=== PATIENT | female | born 1970 | race Caucasian/White ===

== ENCOUNTER → 2023-06-05 08:24 | Outpatient (REF) | payer BC, SELFPAY ==
[2023-06-05 11:49] LABS: Microalbumin, Random Urine 0.9 mg/dl (0.6-1.7); Microalbumin/creatinine Ratio 38.1 mg/g
[2023-06-05 12:07] LABS: ALT (SGPT) 24 U/L (0-35); AST (SGOT) 29 U/L (14-36); Albumin 4.2 g/dl (3.5-5.0); Alkaline Phosphatase 94 U/L (38-126); Blood Urea Nitrogen 22 mg/dl (7-17); Calcium 9.6 mg/dl (8.4-10.2); Carbon Dioxide 27 mmol/L (22-30); Chloride 100 mmol/L (98-107); Glucose 146 mg/dl (70-99); HDL Cholesterol 48 mg/dl; LDL Cholesterol, Calculated 62 mg/dl; Potassium 4.5 mmol/L (3.5-5.1); Sodium 137 mmol/L (135-145); Total Bilirubin 0.5 mg/dl (0.2-1.3); Total Cholesterol 124 mg/dl (50-199); Triglyceride 74 mg/dl (10-149); Very Low Density Lipoprotein 14 mg/dl (0-30); eGFR > 60.00
[2023-06-05 12:19] LABS: Glycohemoglobin (HgbA1c) 6.5 % (4.0-5.6)
[2023-06-05 12:20] LABS: Vitamin D, 25-OH*** 57.2 ng/mL (30-80)
== END ==
LOC: REG 08:24
PROVIDERS: ATTENDING PHYSICIAN Student in an Organized Health Care Education/Training Program
DX: I10 Essential (primary) hypertension (principal); E11.65 Type 2 diabetes mellitus with hyperglycemia; E55.9 Vitamin D deficiency, unspecified
CPT/HCPCS: 36415; 80053; 80061; 82043; 82306; 82570; 83036

== ENCOUNTER → 2023-12-03 07:51 | Outpatient (REF) | payer BC, SELFPAY ==
[2023-12-03 10:24] LABS: HDL Cholesterol 52 mg/dl; LDL Cholesterol, Calculated 75 mg/dl; Total Cholesterol 144 mg/dl (50-199); Triglyceride 87 mg/dl (10-149); Very Low Density Lipoprotein 17 mg/dl (0-30)
== END ==
LOC: REG 07:51
PROVIDERS: ATTENDING PHYSICIAN Family Medicine
DX: E11.65 Type 2 diabetes mellitus with hyperglycemia (principal)
CPT/HCPCS: 36415; 80061

== ENCOUNTER → 2023-12-31 06:15 | Day surgery (SDC) | payer BC, SELFPAY ==
[2023-12-31 07:50] LABS: Glucose - Point of Care 160 mg/dl (70-99)
== END ==
LOC: GI 06:15
PROVIDERS: ATTENDING PHYSICIAN Internal Medicine; FAMILY PHYSICIAN Family Medicine
DX: Z12.11 Encounter for screening for malignant neoplasm of colon (principal); R13.10 Dysphagia, unspecified; K22.2 Esophageal obstruction; K31.7 Polyp of stomach and duodenum; D12.2 Benign neoplasm of ascending colon; K63.5 Polyp of colon; K21.00 Gastro-esophageal reflux disease with esophagitis, without bleeding
CPT/HCPCS: 43249; 45385; 45380; 43239; 88305; 82962; 88342

== ENCOUNTER → 2024-05-31 07:29 | Outpatient (REF) | payer BC, SELFPAY ==
[2024-05-31 08:59] LABS: Microalbumin, Random Urine 1.6 mg/dl (0.6-1.7)
[2024-05-31 09:04] LABS: Microalbumin/creatinine Ratio 38.6 mg/g
[2024-05-31 09:07] LABS: Glycohemoglobin (HgbA1c) 6.2 % (4.0-5.6)
[2024-05-31 11:02] LABS: ALT (SGPT) 30 U/L (0-35); AST (SGOT) 31 U/L (14-36); Albumin 4.9 g/dl (3.5-5.0); Alkaline Phosphatase 82 U/L (38-126); Blood Urea Nitrogen 18 mg/dl (7-17); Carbon Dioxide 26 mmol/L (22-30); Chloride 103 mmol/L (98-107); Glucose 81 mg/dl (70-99); HDL Cholesterol 47 mg/dl; LDL Cholesterol, Calculated 64 mg/dl; Potassium 4.3 mmol/L (3.5-5.1); Sodium 142 mmol/L (135-145); Total Bilirubin 0.6 mg/dl (0.2-1.3); Total Cholesterol 130 mg/dl (50-199); Total Protein 7.8 g/dl (6.3-8.2); Triglyceride 98 mg/dl (10-149); Very Low Density Lipoprotein 19 mg/dl (0-30); eGFR > 60.00
[2024-05-31 11:15] LABS: Vitamin D, 25-OH*** 61.9 ng/mL (30-80)
== END ==
LOC: REG 07:29
PROVIDERS: ATTENDING PHYSICIAN Family Medicine
DX: E11.65 Type 2 diabetes mellitus with hyperglycemia (principal); E55.9 Vitamin D deficiency, unspecified; R80.9 Proteinuria, unspecified; Z79.4 Long term (current) use of insulin
CPT/HCPCS: 36415; 80053; 80061; 82043; 82306; 82570; 83036

== ENCOUNTER 2024-11-17 06:15 | Day surgery (SDC) | payer BC, SELFPAY ==
[2024-11-17 08:09] VITALS: BMI 37.0
[2024-11-17 08:11] VITALS: BP 154/90; BMI 37.0
[2024-11-17 08:13] LABS: Glucose - Point of Care 278 mg/dl (70-99)
[2024-11-17] MEDS: NORMOSOL-R/PLASMALYTE-A 1000 IV (08:27)
[2024-11-17] MEDS: NOVOLOG vial 4 UNITS SC (08:28)
[2024-11-17] MEDS: NEO-SYNEPHRINE 2.5% OPH SOL. 1 DROP OPHTH (09:03)
[2024-11-17] MEDS: CYCLOGYL 1% EYE DROPS 1 DROP OPHTH (09:03)
[2024-11-17] MEDS: ALCAINE 0.5% EYE DROPS 1 DROP OPHTH (09:03)
[2024-11-17] MEDS: MYDRIACYL 1 DROP OPHTH (09:03)
[2024-11-17] MEDS: PRED FORTE 1% EYE DROPS 1 DROP OPHTH (09:04)
[2024-11-17] MEDS: POLYTRIM OPHTHALMIC SOLUTION 1 DROP OPHTH (09:04)
[2024-11-17] MEDS: AKTEN OPHTHALMIC GEL 1 ML OPHTH (09:06)
[2024-11-17 09:51] LABS: Glucose - Point of Care 286 mg/dl (70-99)
[2024-11-17 10:20] VITALS: BP 148/80
== END 2024-11-17 10:43 | disposition home or self-care (01) ==
LOC: SDS 06:15
PROVIDERS: ATTENDING PHYSICIAN Ophthalmology
DX: H25.812 Combined forms of age-related cataract, left eye (principal)
CPT/HCPCS: 66984; 82962; V2632

== ENCOUNTER 2024-12-01 06:26 | Day surgery (SDC) | payer BC, SELFPAY ==
[2024-12-01 08:03] LABS: Glucose - Point of Care 119 mg/dl (70-99)
[2024-12-01 08:07] VITALS: BMI 31.0
[2024-12-01 08:08] VITALS: BMI 31.0
[2024-12-01] MEDS: AKTEN OPHTHALMIC GEL 1 ML OPHTH (08:08)
[2024-12-01 08:10] VITALS: BP 174/101
[2024-12-01] MEDS: POLYTRIM OPHTHALMIC SOLUTION 1 DROP OPHTH (08:11)
[2024-12-01] MEDS: CYCLOGYL 1% EYE DROPS 1 DROP OPHTH (08:11)
[2024-12-01] MEDS: NEO-SYNEPHRINE 2.5% OPH SOL. 1 DROP OPHTH (08:11)
[2024-12-01] MEDS: PRED FORTE 1% EYE DROPS 1 DROP OPHTH (08:11)
[2024-12-01] MEDS: MYDRIACYL 1 DROP OPHTH (08:12)
[2024-12-01] MEDS: NORMOSOL-R/PLASMALYTE-A 1000 IV (08:12)
[2024-12-01] MEDS: ALCAINE 0.5% EYE DROPS 1 DROP OPHTH (08:12)
[2024-12-01 09:30] VITALS: BP 143/79
== END 2024-12-01 10:05 | disposition home or self-care (01) ==
LOC: SDS 06:26
PROVIDERS: ATTENDING PHYSICIAN Ophthalmology
DX: H25.811 Combined forms of age-related cataract, right eye (principal)
CPT/HCPCS: 66984; 82962; V2632

== ENCOUNTER → 2024-12-15 07:12 | Outpatient (REF) | payer BC, SELFPAY ==
[2024-12-15 08:13] LABS: Hematocrit 39.9 % (37.0-47.0); Hemoglobin 12.3 g/dL (12.0-16.0); Mean Corp Hgb Conc. 30.8 g/dL (33.0-37.0); Mean Corpuscular Volume 89.7 fL (81.0-99.0); Nucleated Red Blood Cells % 0 %; Platelet Count 250 10^3/uL (130-400); Red Cell Dist. Width 12.4 % (11.5-14.5)
[2024-12-15 08:17] LABS: Urine Character Clear (Clear)
[2024-12-15 08:54] LABS: Microalb - Urine Creatinine 65.500 mg/dl; Urine Squamous Cell 16-20 /LPF (Few); Urine Urothelial Cell 0-2 /LPF (FEW)
[2024-12-15 08:56] LABS: Urine White Cell 30-40 /HPF (0-5)
[2024-12-15 08:59] LABS: Microalbumin, Random Urine 1.2 mg/dl (0.6-1.7)
[2024-12-15 09:00] LABS: Albumin 4.5 g/dl (3.5-5.0); Carbon Dioxide 30 mmol/L (22-30); eGFR > 60.00
[2024-12-15 09:10] LABS: ALT (SGPT) 22 U/L (0-35); AST (SGOT) 22 U/L (14-36); Alkaline Phosphatase 71 U/L (38-126); Blood Urea Nitrogen 15 mg/dl (7-17); Calcium 9.9 mg/dl (8.4-10.2); Chloride 103 mmol/L (98-107); Glucose 124 mg/dl (70-99); HDL Cholesterol 44 mg/dl; LDL Cholesterol, Calculated 49 mg/dl; Potassium 4.4 mmol/L (3.5-5.1); Sodium 142 mmol/L (135-145); Total Protein 7.6 g/dl (6.3-8.2); Very Low Density Lipoprotein 13 mg/dl (0-30)
[2024-12-15 09:24] LABS: TSH 2.13 uIU/ml (0.47-4.68)
[2024-12-15 09:52] LABS: Glycohemoglobin (HgbA1c) 8.1 % (4.0-5.9)
== END ==
LOC: REG 07:12
PROVIDERS: ATTENDING PHYSICIAN Family Medicine
DX: Z00.00 Encounter for general adult medical examination without abnormal findings (principal); E11.65 Type 2 diabetes mellitus with hyperglycemia; R80.9 Proteinuria, unspecified; E78.49 Other hyperlipidemia
CPT/HCPCS: 36415; 80053; 80061; 81003; 81015; 82043; 82570; 83036; 84443; 85025